=== PATIENT | female | born 1940 | race Caucasian/White ===

== ENCOUNTER → 2017-04-02 | Outpatient (CLI) | payer MEDICARE ==
[~2017-04-02] MED LIST: ASPI1TAB93 PO; BIOTCAP PO; ESTR0.5T PO; FISH1000 PO; GLUCCAP27 PO; LEVO.125 PO; LEVO125T4 PO; LOVA20TA PO; MEDR2.5T19 PO; MEDR5TAB3 PO; MELO15TA2 PO; MELO15TA20 PO; MULTTAB67 PO; OMEG12002 PO; TAB-TAB PO; VITA100018 PO
[2017-04-02 10:46] LABS: HEMATOCRIT 40.8 % (35.0-46.0); HEMOGLOBIN 12.9 GM/DL (11.6-15.3); MEAN CELL VOLUME 85.8 FL (80.0-100.0); MEAN CORPUSCULAR HEMOGLOBIN 27.1 PG (27.0-34.0); MEAN CORPUSCULAR HGB CONC 31.6 % (32.0-36.0); MEAN PLATELET VOLUME 8.9 FL (7.0-11.0); PLATELET COUNT 310 TH/MM3 (150-450); RED BLOOD COUNT 4.75 MIL/MM3 (4.00-5.30); RED CELL DISTRIBUTION WIDTH 12.8 % (11.6-17.2); WHITE BLOOD COUNT 7.7 TH/MM3 (4.0-11.0)
[2017-04-02 11:23] LABS: BICARBONATE 30.6 MEQ/L (21.0-32.0)
== END ==
LOC: PHPRE 10:15
PROVIDERS: ATTEND Plastic Surgery
DX: Z01.812 Encounter for preprocedural laboratory examination (principal); C44.311 Basal cell carcinoma of skin of nose
CPT/HCPCS: 36415; 80051; 85027

== ENCOUNTER → 2017-04-06 | Day surgery (SDC) | payer MEDICARE ==
--- NOTE | 2017-04-05 12:25 | MH ---
cc: [facility] DATE OF ADMISSION: 04/06/2017 CHIEF COMPLAINT Biopsy-proven basal cell carcinoma on the nose right side ala. HISTORY This is a 75-year-old white female referred to me from the dermatology office where she had a biopsy of a new lesion on her right side nose ala area done which shows ulcerated basal cell carcinoma, superficial and nodular type. Biopsy was done February 20, 2017. The patient also had a previous tip of the nose basal cell carcinoma operated on by myself several years ago and had a skin graft in that area. The new lesion is outside the original graft. The patient also seems to have a second growth area under the graft on the columella that has not been biopsied. The patient wishes to go ahead with the definitive surgery. She underwent explanation of the excisional frozen section process and then depending on the location, the size and the orientation of the defect, reconstruction options were discussed. She is not willing to go with any major flap reconstruction at this point such as nasolabial or forehead flap. She wishes to proceed only with a full-thickness skin graft even if there is a slight notching of the alar border that may result. The patient is overall comfortable with the resultant appearance from a skin graft as she already had one in the past year. The patient is otherwise medically stable. PAST MEDICAL HISTORY Past medical history is negative for any major medical issues. No diabetes, no hypertension, no coronary artery problems. No history of any chest pain, shortness of breath, etc. PAST SURGICAL HISTORY No major surgeries listed. MEDICATIONS 1. Levothyroxine. 2. Lovastatin. 3. Meloxicam. 4. Vitamins. 5. Medroxyprogesterone and estradiol. SOCIAL HISTORY Negative for smoking. She never smoked. No alcohol or drug abuse. REVIEW OF SYSTEMS Otherwise negative for any acute recent change of health. PHYSICAL EXAMINATION GENERAL: Examination shows a 75-year-old white female with stable vital signs. The patient is alert, cooperative, fully oriented. She is emotionally stable, fully ambulatory by herself. HEAD AND NECK: Clear sclerae. Pupils are round and equal. Trachea is midline. There is no thyromegaly or gross masses. NECK: The neck movements are adequate for her age. CHEST: Good expansion with normal breathing, normal heart sounds, normal breath sounds. Upper and lower extremities are grossly intact. Local examination of the nose skin shows a slightly ulcerated area on the right ala outside of the previous skin graft. The biopsy site is healing well but the surrounding area does seem to have a residual lesion clinically on the border. The second area noted is under the columella and also on the columella just below the previous skin graft and this area has not been biopsied previously. PLAN The plan is to excise both areas and to do frozen section and the reconstruction with a full-thickness skin graft from right side neck or left side of neck as appropriate. The patient's laboratory tests will be reviewed when available on the chart. MD MANJEET Bowden/JHONY /11:57 AM /12:06 PM
[~2017-04-06] VITALS: Ht 160 cm; Wt 60.9 kg
[~2017-04-06] MED LIST changes: +ACETAMINOPHEN/HYDROcodone 325 MG/5 MG TAB ONE; +ARTIFICIAL TEARS OPTH OINT 3.5 APPLIC/3.5 GM TUBO ONE; +BACITRACIN OPHT OINT 3.5 GM TUBO ONE; +BACITRACIN TOP OINT 15 GM TUBE ONE; +CHLORHEXIDINE GLUCONATE 2 % 1 PACK (2 CLOTHS) TOPICAL PRN; -FISH1000 PO; -GLUCCAP27 PO; +LACTATED RINGER'S 1000 ML IV PRN; -LEVO.125 PO; +LIDOCAINE 1%/EPINEPHrine 1:100,000 SOLN 30 ML VIAL ONE; -MEDR2.5T19 PO; -MELO15TA2 PO; +METOPROLOL TARTRATE 25 MG TAB PO PRN; +POVIDONE IODINE 5% (ANTISEPSIS KIT) 4 APPLICATIONS EACH NARE PRN; +SODIUM CHLORID 0.9% 500 ML IV PRN; +SODIUM CHLORIDE 0.9% INJ 50 ML ONE; -TAB-TAB PO; +ceFAZolin INJ 1,000 MG VIAL ONE; +fentaNYL CITRATE 250 MCG/5 ML AMP ONE
[2017-04-06 10:40] VITALS: BP 135/82; PULSE 88; RESP 16; TEMP 97; O2SAT 95
--- NOTE | 2017-04-08 11:57 | MP ---
cc: GARRISON BURKS M.D. DATE OF SURGERY: 04/06/2017. PREOPERATIVE DIAGNOSIS: 1. Biopsy-proven basal cell carcinoma of the right ala of the nose. 2. New lesion, columella of the nose. POSTOPERATIVE DIAGNOSIS: 1. Basal cell carcinoma, right ala of the nose. 2. Basal cell carcinoma, columella the nose. OPERATIVE PROCEDURE PERFORMED: 1. Excision basal cell carcinoma right ala of the nose 1.5 x 1.2 cm, frozen section and full-thickness skin graft from the right neck. 2. Excision basal cell carcinoma columella 8 mm x 5 mm excision frozen section and full-thickness skin graft from the right neck. SURGEON: Garrison Burks M.D. ANESTHESIA General INDICATIONS FOR THE PROCEDURE: This is a 76-year-old white female who has been diagnosed with biopsy-proven basal cell carcinoma involving the right ala of the nose somewhat multicentric in appearance. Also, she has a new lesion on the columella, and the previously she had undergone an excision of the tip of the nose basal cell carcinoma with a skin graft that has healed very well. The patient is otherwise medically stable and understands the surgical technique of excision with frozen section to decide the margins and then reconstruction as needed. She does not want any major nasolabial flap or forehead flap type of reconstruction, only a skin graft and she will accept the resultant outcome. DESCRIPTION OF THE PROCEDURE IN DETAIL: The patient was brought to the operating room and was in the supine position. Anesthesia was started with LMA. Time-out was called and completed. Prep and drape was done. Preoperative markings were reinforced and both areas were injected with lidocaine 1% with epinephrine and saline mixed dilute solution. The right ala was excised down to the underlying soft tissues leaving a thin layer of tissue behind on the cartilage. It was suture marked superior. Similarly the columella was also excised leaving a small amount of tissue on the cartilage to protect it. Both specimens were sent for frozen section. Hemostasis was completed. An oversized graft was harvested from the right neck full-thickness and it was thinned to match the corresponding areas of the recipient defect. It was sutured in place leaving a portion of the graft long while awaiting the frozen section. Frozen section report indicated the presence of a new basal cell carcinoma on the columella, it was close to the nine o'clock margin but otherwise a clear microscopically clear margin. No further excision was indicated at this point. The specimen on the right ala however was free of basal cell on the peripheral margin but it did have a central small positive deep margin. Accordingly, the sutures holding the graft were released and a small amount of lidocaine was injected again to tumes the area and then going straight on the cartilage surface itself, the deep surface was excised. A small portion of the cartilage was also taken in the central area to provide better margin. This will be is sent only for permanent section as the removal of the cartilage is not feasible at this time due to the use of full-thickness skin graft only being the patient's wish. The graft was re-set in place after hemostasis again. The undersides of both grafts were irrigated clean with saline solution and then all the areas were cleaned, dried and sterile dressing was applied. Also the graft on the right ala had been transfixed with a [id number] suture using a Xeroform pledget. The donor site was also closed with interval Vicryl sutures only. Steri-Strips were applied. The patient remained stable. Intraoperative blood loss was less than 5 mL. No complications. MD MANJEET Bowden/SEB /1:27 PM /11:42 AM
== END | disposition home or self-care (01) ==
LOC: PHSDC 06:16
PROVIDERS: ATTEND Plastic Surgery
DX: C44.311 Basal cell carcinoma of skin of nose (principal)
CPT/HCPCS: 00300; 11641; 11642; 15260; 88305; 88331; J0690; J3010; J7120